=== PATIENT | female | born 1960 | race Two or more races ===

== ENCOUNTER → 2016-07-28 | Outpatient (REF) | payer OTHER ==
[2016-07-28 13:55] LABS: IMMUNOGLOBULIN A 74.3 MG/DL (70-400)
== END ==
LOC: M LAB REF 12:42
PROVIDERS: ATTEND Internal Medicine
DX: J32.9 Chronic sinusitis, unspecified (principal)

== ENCOUNTER → 2016-08-06 | Outpatient (REF) | payer OTHER ==
[2016-08-14 00:08] LABS: ANTI TETANUS ANTIBODY 1.9 IU/mL (<0.10); PNEUPRE1 8.8 ug/mL (>1.3); PNEUPRE2 3.7 ug/mL (>1.3); PNEUPRE3 0.5 ug/mL (>1.3); PNEUPRE4 1.1 ug/mL (>1.3); PNEUPRE5 0.4 ug/mL (>1.3); PNEUPRE6 1.1 ug/mL (>1.3); PNEUPRE7 2.4 ug/mL (>1.3)
== END ==
LOC: M LAB REF 13:15
PROVIDERS: ATTEND Internal Medicine
DX: D80.1 Nonfamilial hypogammaglobulinemia (principal)

== ENCOUNTER → 2017-01-07 | Outpatient (REF) | payer OTHER | LOC: M LAB REF 11:13 | PROVIDERS: ATTEND Internal Medicine | DX: D80.1 Nonfamilial hypogammaglobulinemia (principal); R79.1 Abnormal coagulation profile ==

== ENCOUNTER → 2018-01-02 | Outpatient (REF) | payer OTHER ==
[2018-01-02 17:39] LABS: C REACTIVE PROTEIN QUANTITATIV 3.68 MG/DL (0.00-0.30)
[2018-01-02 17:39] LABS: URIC ACID 2.3 MG/DL (2.6-6.0)
== END ==
LOC: M LAB REF 16:53
DX: M06.4 Inflammatory polyarthropathy (principal)

== ENCOUNTER → 2018-01-09 | Outpatient (REF) | payer OTHER ==
[2018-01-09 13:07] LABS: C REACTIVE PROTEIN QUANTITATIV 2.33 MG/DL (0.00-0.30)
== END ==
LOC: M LAB REF 11:51
DX: M06.4 Inflammatory polyarthropathy (principal); R79.82 Elevated C-reactive protein (CRP)
CPT/HCPCS: 86140

== ENCOUNTER → 2018-01-13 | Outpatient (REF) | payer OTHER ==
[2018-01-13 12:35] LABS: COMPLEMENT C3 143 MG/DL (90-180)
[2018-01-13 12:35] LABS: COMPLEMENT C4 35 MG/DL (10-40); RHEUMATOID FACTOR QUANT < 10.0 IU/ML (<15.0)
[2018-01-23 14:12] LABS: ANA (HEP2) Negative (.); ANTI SCLERODERMA ANTIBODIES <0.2 AI (0.0-0.9); COMPLEMENT C2 2.9 mg/dL (1.6-4.0)
== END ==
LOC: M LAB REF 11:55
DX: R53.81 Other malaise (principal)
CPT/HCPCS: 86160

== ENCOUNTER → 2018-06-29 | Outpatient (REF) | payer OTHER ==
[2018-07-01 00:07] LABS: ENDOMYSIAL ABY IgA Negative (Negative); TISSUE TRANSGLUTAMINASE IgA <2 U/mL (0-3)
== END ==
LOC: M LAB REF 12:56
PROVIDERS: ATTEND Internal Medicine
DX: L29.9 Pruritus, unspecified (principal)

== ENCOUNTER → 2018-09-18 | Outpatient (REF) | payer OTHER | LOC: M LAB REF 12:53 | PROVIDERS: ATTEND Internal Medicine | DX: H15.012 Anterior scleritis, left eye (principal) ==

== ENCOUNTER → 2020-12-12 | Outpatient (CLI) | payer OTHER ==
--- NOTE | 2020-12-12 11:10 | REPMRS ---
Patient History The patient states she had a clinical breast exam in October 2020. Patient is postmenopausal. No known family history of cancer. Patient states no breast complaints today. Patient has signed MRS History Sheet. Digital Woman Screen Mammo: December 12, 2020 - Exam #: [id number] Bilateral CC and MLO view(s) were taken. Technologist: Vonnie Sears, Technologist Prior study comparison: December 07, 2019, bilateral digital mammo screening bilat, performed at [facility]. December 04, 2018, bilateral digital mammo screening bilat, performed at [facility]. FINDINGS: The breast tissue is heterogeneously dense. This may lower the sensitivity of mammography. Screening. Digital screening (2D) mammography was performed bilaterally in the CC and MLO projections. Additionally, breast tomosynthesis (3D mammography) was performed bilaterally in the CC and MLO projections. Todays exam was compared to the prior exam/exams. By history, the patient has no complaints of a palpable breast abnormality or other significant breast complaints. The breasts are unchanged in size and shape. Once again, dense heterogenous fibroglandular elements are seen bilaterally in a stable appearing pattern but to such a degree that the sensitivity of the mammogram in detecting cancer is decreased.There are no jenaro-soft tissue densities or spiculated masses. There is no internal architectural distortion. There are no suspicious jenaro-calcific clusters. Skin thickening or nipple retraction is not present. IMPRESSION: BI-RADS Category 2- Benign Findings. There is no evidence of malignant alteration of the breasts. Followup examination recommended in one year. The Volpara volumetric breast density category is C, the breasts are heterogenously dense which may obscure small masses. This mammogram was read with the assistance [facility],an FDA approved computer aided detection system for mammography. The lifetime Tyrer-Cuzick score is 9.6 % Due to the density of the breasts or Tyrer Cuzick score of 20% or greater, MRI/whole breast screening ultrasound is warranted. Negative x-ray reports should not delay surgical consultation if a dominant or clinically suspicious mass is present. Not all breast cancers can be identified by mammography. Therefore, we recommend that you continue to perform regular breast self-examination and physical examination and then promptly contact your physician of any concerns or changes. Adenosis and dense breasts may obscure an underlying neoplasm. Assessment: BI-RADS/ACR category 2 mammogram. Benign Findings. Recommendation Routine screening mammogram of both breasts in 1 year. Electronically Signed By: Fazal Juarez DO 12/12/20 1949
--- NOTE | 2020-12-12 11:51 | REP ---
INDICATION: Dense breast COMPARISON: None TECHNIQUE: Bilateral whole breast ultrasonography FINDINGS: There are no cystic or solid masses seen on the images provided IMPRESSION: Negative bilateral whole breast screening ultrasound. ACR category 2 <Electronically signed by Fazal Juarez > 12/12/20 1141
== END ==
LOC: M WHC 10:17
PROVIDERS: ATTEND Internal Medicine
DX: R92.2 Inconclusive mammogram (principal)

== ENCOUNTER → 2021-04-15 | Outpatient (REF) | payer OTHER | LOC: M LAB REF 11:35 | PROVIDERS: ATTEND Internal Medicine | DX: M81.0 Age-related osteoporosis without current pathological fracture (principal) ==

== ENCOUNTER → 2021-10-19 | Outpatient (REF) | payer OTHER | LOC: M LAB REF 11:25 | PROVIDERS: ATTEND Internal Medicine | DX: M81.0 Age-related osteoporosis without current pathological fracture (principal) ==

== ENCOUNTER → 2022-02-24 | Outpatient (CLI) | payer OTHER | LOC: M WUC 09:57 | PROVIDERS: ATTEND Internal Medicine | DX: R06.09 Other forms of dyspnea (principal) ==

== ENCOUNTER → 2022-04-09 | Outpatient (CLI) | payer OTHER | LOC: M WHC 08:30 | PROVIDERS: ATTEND Internal Medicine | DX: Z13.820 Encounter for screening for osteoporosis (principal) ==

== ENCOUNTER → 2022-04-19 | Outpatient (REF) | payer OTHER | LOC: M LAB REF 12:04 | PROVIDERS: ATTEND Internal Medicine | DX: M81.0 Age-related osteoporosis without current pathological fracture (principal) ==

== ENCOUNTER → 2022-08-03 | Outpatient (REF) | payer OTHER | LOC: M LAB REF 16:37 | PROVIDERS: ATTEND Internal Medicine | DX: M79.10 Myalgia, unspecified site (principal) ==

== ENCOUNTER → 2022-10-20 | Outpatient (REF) | payer OTHER | LOC: M LAB REF 11:46 | PROVIDERS: ATTEND Internal Medicine | DX: M81.0 Age-related osteoporosis without current pathological fracture (principal) ==

== ENCOUNTER → 2023-08-27 | Outpatient (REF) | payer OTHER | LOC: M LAB REF 16:23 | PROVIDERS: ATTEND Physician Assistant | DX: B37.31 Acute candidiasis of vulva and vagina (principal) ==

== ENCOUNTER → 2024-01-09 | Outpatient (CLI) | payer OTHER ==
[2024-01-09 13:27] LABS: BLOOD UREA NITROGEN 14 MG/DL (9-23); CALCIUM LEVEL 10.3 MG/DL (8.3-10.6); CARBON DIOXIDE LEVEL 30 MMOL/L (20-31); CHLORIDE LEVEL 106 MMOL/L (98-107); CREATININE FOR GFR 0.63 MG/DL (0.55-1.30); GLOMERULAR FILTRATION RATE > 60.0 (>45); GLUCOSE, FASTING 78 MG/DL (74-106); POTASSIUM SERUM 3.7 MMOL/L (3.5-5.1); SODIUM LEVEL 142 MMOL/L (136-145)
== END ==
LOC: M WUC 10:19
PROVIDERS: ATTEND Nurse Practitioner Family
DX: M81.0 Age-related osteoporosis without current pathological fracture (principal)

== ENCOUNTER → 2024-04-11 | Outpatient (CLI) | payer OTHER | LOC: M WHC 12:35 | PROVIDERS: ATTEND Internal Medicine Endocrinology, Diabetes & Metabolism | DX: M81.0 Age-related osteoporosis without current pathological fracture (principal) ==